=== PATIENT | female | born 1955 | race Caucasian/White ===

== ENCOUNTER 2019-04-20 21:17 | Inpatient (IN) | payer MEDICAID ==
[~2019-04-20] VITALS: Ht 157.5 cm; Wt 76.3 kg
[2019-04-21] MEDS ORDERED: FLUO10CA23 PO (01:15)
[2019-04-21] MEDS ORDERED: FOLI1 PO (01:16)
[2019-04-21 01:33] LABS: BASOPHILS % (AUTO) 1.3 % (0.0-2.0); EOSINOPHILS % (AUTO) 2.6 % (1.0-6.0); HEMATOCRIT 27.7 % (36-46); LYMPHOCYTES # (AUTO) 3.8 K/uL (1.0-4.8); LYMPHOCYTES % (AUTO) 34.8 % (22.0-44.0); MEAN CORPUSCULAR HEMOGLOBIN 25.8 pg (26.0-34.0); MEAN CORPUSCULAR HGB CONC 32.4 G/dL (31.0-37.0); MEAN CORPUSCULAR VOLUME 80 fL (80-100); MONOCYTES # (AUTO) 0.6 K/uL (0.1-1.0); MONOCYTES % (AUTO) 5.9 % (2.0-9.0); NEUTROPHILS % (AUTO) 55.4 % (40.0-70.0); PLATELET COUNT (AUTO) 244 K/uL (150-450); RED BLOOD CELL COUNT(AUTO) 3.48 MIL/uL (4.00-5.20); RED CELL DISTRIBUTION WIDTH 22.6 % (11.5-14.5)
[2019-04-21 01:39] LABS: ANION GAP 9 mmol/L (8-16); CALCIUM, TOTAL 8.1 mg/dL (8.8-10.5); CARBON DIOXIDE 26 mmol/L (22-29); CHLORIDE 106 mmol/L (98-107); CREATININE 0.76 mg/dL (0.60-1.30); GLOMERULAR FILTR. RATE CALC > 60 mL/min (>60); GLUCOSE,RANDOM 86 mg/dL (70-110); POTASSIUM 3.4 mmol/L (3.5-5.1); SODIUM SERUM 141 mmol/L (136-145); UREA NITROGEN, BLOOD 5 mg/dL (7-18)
[2019-04-21 01:46] LABS: ALANINE AMINOTRANSFERASE 28 U/L (12-78); ALBUMIN 2.8 g/dL (3.4-5.0); ALKALINE PHOSPHATASE 129 U/L (46-116); ASPARTATE AMINOTRANSFERASE 70 U/L (15-37); BILIRUBIN,TOTAL 3.3 mg/dL (0.1-1.0)
[2019-04-21] MEDS ORDERED: HALOPERIDOL 5 MG TABLET PO PRN (02:30)
[2019-04-21] MEDS ORDERED: ZOLPIDEM TARTRATE 10 MG TABLET PO PRN (02:30)
[2019-04-21] MEDS ORDERED: POTASSIUM CHLORIDE 20 MEQ ER TABLET PO ONE (03:30)
[2019-04-21] MEDS: LORazepam 2 MG TABLET PO PRN ×2 (04:13→11:15)
[2019-04-21 04:29] VITALS: BP 151/79
[2019-04-21 04:50] VITALS: BP 151/79
[2019-04-21] MEDS ORDERED: PNEUMOCOCCAL VACCINE POLYVALENT 0.5 ML VIAL [PPSV23] IM ONE (05:45)
[2019-04-21] MEDS ORDERED: INFLUENZA VIRUS VACCINE QVS 2019-20 (3YR+)/PF 60 MCG/0.5 ML SYRINGE IM ONE (05:45)
[2019-04-21 13:06] VITALS: BP 98/44
[2019-04-21] MEDS: FLUoxetine HCL 10 MG CAPSULE PO SCH (13:56)
[2019-04-21] MEDS ORDERED: DOCUSATE SODIUM 100 MG CAPSULE PO PRN (16:00)
[2019-04-21] MEDS ORDERED: ALBUTEROL SULFATE HFA 90 MCG/PUFF 8 GM INHALER IH PRN (16:00)
[2019-04-21] MEDS ORDERED: ACETAMINOPHEN 325 MG TABLET PO PRN (16:00)
[2019-04-21] MEDS ORDERED: OMEPRAZOLE 20 MG CAPSULE PO PRN (16:00)
[2019-04-21] MEDS ORDERED: BACITRACIN 28.4 GM OINTMENT TP PRN (16:00)
[2019-04-21] MEDS ORDERED: MAGNESIUM HYDROXIDE SUSPENSION 30 ML UDCUP PO PRN (16:00)
[2019-04-21] MEDS ORDERED: CloNIDine HCL 0.1 MG TABLET PO PRN (16:00)
[2019-04-21] MEDS ORDERED: IBUPROFEN 600 MG TABLET PO PRN (16:00)
[2019-04-21] MEDS ORDERED: BENZOCAINE/MENTHOL LOZENGE MM PRN (16:00)
[2019-04-21] MEDS ORDERED: LOPERAMIDE HCL 2 MG CAPSULE PO PRN (16:00)
[2019-04-21] MEDS ORDERED: PETROLATUM,WHITE 28 GM JELLY TP PRN (16:00)
[2019-04-21] MEDS ORDERED: MAG HYDROX/AL HYDROX/SIMETH ES 30 ML SUSPENSION UDCUP PO PRN (16:00)
[2019-04-21] MEDS ORDERED: ONDANSETRON HCL 4 MG TABLET PO PRN (16:00)
[2019-04-21 20:18] VITALS: BP 133/70
[2019-04-21 23:07] LABS: APPEARANCE,URINE CLOUDY (CLEAR); GLUCOSE, URINE (UA) NEGATIVE (NEGATIVE); KETONES,URINE TRACE mg/dL (NEGATIVE); LEUKOCYTE ESTERASE ,URINE SMALL (NEGATIVE); OCCULT BLOOD,URINE NEGATIVE (NEGATIVE); PROTEIN,URINE NEGATIVE (NEGATIVE)
[2019-04-21 23:14] LABS: BILIRUBIN,URINE PRELIM. POSITIVE (NEGATIVE)
[2019-04-21 23:16] LABS: BACTERIA,URINE Many /HPF (None Seen); RBC,URINE None Seen /HPF (0-2)
[2019-04-21 23:17] LABS: SQUAMOUS EPITHELIAL CELL,UR Few /LPF (None Seen)
[2019-04-21 23:24] LABS: AMPHET/METH SCREEN,URINE NEGATIVE (NEGATIVE); BARBITURATE SCREEN, URINE NEGATIVE (NEGATIVE); BENZODIAZEPINES SCREEN,URINE POSITIVE (NEGATIVE); CANNABINOID SCREEN,URINE NEGATIVE (NEGATIVE); COCAINE SCREEN,URINE NEGATIVE (NEGATIVE); METHADONE SCREEN, URINE NEGATIVE (NEGATIVE); OPIATE SCREEN,URINE NEGATIVE (NEGATIVE)
[2019-04-21 23:26] LABS: PHENCYCLIDINE SCREEN,URINE NEGATIVE (NEGATIVE)
[2019-04-22 08:26] LABS: ANION GAP 11 mmol/L (8-16); CALCIUM, TOTAL 8.3 mg/dL (8.8-10.5); CARBON DIOXIDE 25 mmol/L (22-29); CHLORIDE 105 mmol/L (98-107); CHOL/HDL RATIO 6.8 (3.9-5.7); CHOLESTEROL 157 mg/dL (131-200); CREATININE 0.61 mg/dL (0.60-1.30); GLOMERULAR FILTR. RATE CALC > 60 mL/min (>60); GLUCOSE,RANDOM 83 mg/dL (70-110); HDL CHOLESTEROL 23 mg/dL (40-60); LDL CHOL (CALC.) 112 mg/dL (0-130); POTASSIUM 3.7 mmol/L (3.5-5.1); SODIUM SERUM 141 mmol/L (136-145); TRIGLYCERIDES 110 mg/dL (15-150); UREA NITROGEN, BLOOD 8 mg/dL (7-18)
[2019-04-22] MEDS: FOLIC ACID 1 MG TABLET PO SCH (09:30)
[2019-04-22] MEDS: FLUoxetine HCL 10 MG CAPSULE PO SCH (09:30)
[2019-04-22 10:47] VITALS: BP 144/79
[2019-04-22] MEDS: NITROFURANTOIN/NITROFURAN MAC 100 MG CAPSULE [MACROBID] PO SCH (16:48)
[2019-04-22 21:29] VITALS: BP 140/84
[2019-04-23 08:49] VITALS: BP 146/93
[2019-04-23] MEDS: NITROFURANTOIN/NITROFURAN MAC 100 MG CAPSULE [MACROBID] PO SCH ×2 (10:09→16:13)
[2019-04-23] MEDS: FLUoxetine HCL 10 MG CAPSULE PO SCH (10:09)
[2019-04-23] MEDS: FOLIC ACID 1 MG TABLET PO SCH (10:09)
[2019-04-23] MEDS ORDERED: FLUO10TA3 PO (17:54)
[2019-04-23] MEDS ORDERED: NITR100C PO (18:31)
[2019-04-23] MEDS ORDERED: FOLI1 PO (18:32)
== END 2019-04-23 18:45 | disposition home or self-care (01) | DRG 885 ==
LOC: EMS 21:18 → 3EI 04-21 03:00
PROVIDERS: ADMIT Psychiatry & Neurology Child & Adolescent Psychiatry; ATTEND Psychiatry & Neurology Child & Adolescent Psychiatry
DX: F32.2 Major depressive disorder, single episode, severe without psychotic features (principal); R45.851 Suicidal ideations; M19.90 Unspecified osteoarthritis, unspecified site; F41.9 Anxiety disorder, unspecified; G47.00 Insomnia, unspecified; E87.6 Hypokalemia; Y09 Assault by unspecified means
CPT/HCPCS: 80074; 87081; 87086; G0480